=== PATIENT | female | born 1970 | race Caucasian/White ===

== ENCOUNTER 2020-10-03 01:51 | Emergency (ER) | payer OTHER ==
[~2020-10-03] VITALS: Ht 162.6 cm; Wt 72.6 kg
[~2020-10-03 01:51] MED LIST: FLUTICASONE PRO16 GM; NORTREL1 EAC1 PO; VENLAFAXINE HCL75 MG PO
--- OUTSIDE RECORDS SUMMARY | 2020-10-03 01:52 | XMS ---
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 Garret has no Care Guidelines for this patient. Vishal VISIT COUNT (12 MO.) 1 BRINA Montemayor TOTAL 1 NOTE: Visits indicate total known visits. ED/C VISIT TRACKING (12 MO.) 10/03/2020 01:51 BRINA [facility] [place] TYPE: Emergency COMPLAINT: - STOMACH PAIN INPATIENT VISIT TRACKING (12 MO.) No inpatient visits to display in this time frame [email or web address]
[2020-10-03] MEDS ORDERED: VITAMIN D21250 MCG (02:23)
[2020-10-03] MEDS ORDERED: ESCITALOPRAM OX20 MG (02:23)
[2020-10-03] MEDS ORDERED: ATORVASTATIN CA10 MG (02:23)
[2020-10-03] MEDS ORDERED: BUPROPION XL150 MG (02:23)
[2020-10-03] MEDS ORDERED: DULOXETINE HCL60 MG (02:24)
[2020-10-03] MEDS ORDERED: GABAPENTIN300 MG (02:24)
[2020-10-03] MEDS ORDERED: PREMPRO 0.3 MG1 EACH (02:24)
[2020-10-03] MEDS ORDERED: PROTONIX40 MG PO (04:42)
== END 2020-10-03 05:05 | disposition home or self-care (01) ==
LOC: ED 01:51
DX: R10.13 Epigastric pain (principal); I10 Essential (primary) hypertension; E78.00 Pure hypercholesterolemia, unspecified; Z88.0 Allergy status to penicillin; Z79.899 Other long term (current) drug therapy
CPT/HCPCS: 76705; 80053; 81001; 83690; 84703; 85025; 96374; 96375; 99284-25; J1170; J2405; J7030

== ENCOUNTER 2022-02-25 16:25 | Emergency (ER) | payer OTHER ==
[~2022-02-25] VITALS: Ht 162.6 cm; Wt 72.6 kg
[~2022-02-25 16:25] MED LIST changes: +ATORVASTATIN CA10 MG; +BUPROPION XL150 MG; +DULOXETINE HCL60 MG; +ESCITALOPRAM OX20 MG; +GABAPENTIN300 MG; +PREMPRO 0.3 MG1 EACH; +PROTONIX40 MG PO; +VITAMIN D21250 MCG
--- OUTSIDE RECORDS SUMMARY | 2022-02-25 16:28 | XMS ---
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 EHector VISIT COUNT (12 MO.) 1 BRINA Montemayor TOTAL 1 NOTE: Visits indicate total known visits. ED/UCC VISIT TRACKING (12 MO.) 02/25/2022 16:25 BRINA Gald[facility] [place] TYPE: Emergency COMPLAINT: - BITE INPATIENT VISIT TRACKING (12 MO.) No inpatient visits to display in this time frame [id number]
[2022-02-25] MEDS ORDERED: AMOX TR-K CLV1 EAC1 PO (16:40)
== END 2022-02-25 17:22 | disposition home or self-care (01) ==
LOC: ED 16:25
DX: S61.451A Open bite of right hand, initial encounter (principal); W54.0XXA Bitten by dog, initial encounter; I10 Essential (primary) hypertension; E78.00 Pure hypercholesterolemia, unspecified; Z88.0 Allergy status to penicillin; Z79.899 Other long term (current) drug therapy
CPT/HCPCS: 99283; A9270